=== PATIENT | male | born 1945 | race Caucasian/White ===

== ENCOUNTER → 2020-11-15 | Outpatient (CLI) | payer MEDICARE, BC ==
[2016-09-13 17:40] VITALS: BP 134/84
[~2020-11-15] MED LIST: HYDR-1179 PO
--- NOTE | 2020-11-15 13:46 | RAD ---
CT of the chest without contrast: Clinical History: Reason: FALL, LEFT LATERAL RIB PAIN / Spl. Instructions: / History: . Axial helical images of the chest were obtained without contrast. There is a calcified granuloma in the left upper lobe. There is linear opacities in the lung bases le ft more than right. There is no mediastinal or hilar lymphadenopathy. There is a minimally displaced fracture distal left fourth rib and a nondisplaced fractures through t he distal left fifth and sixth ribs. Impression: Mild rib fractures on the left. End impression PQRS Compliance Statement: One or more of the following individualized dose reduction techniques were utilized for this examinat ion: 1. Automated exposure control 2. Adjustment of the mA and/or kV according to patient size 3. Use of iterative reconstruction technique Electronically signed by: Gregory Reyes III, MD (11/15/2020 1:43 PM) [facility]
== END ==
LOC: CT 12:53
PROVIDERS: ATTEND Nurse Practitioner Adult Health
DX: S22.42XA Multiple fractures of ribs, left side, initial encounter for closed fracture (principal); S22.32XA Fracture of one rib, left side, initial encounter for closed fracture; R91.8 Other nonspecific abnormal finding of lung field; X58.XXXA Exposure to other specified factors, initial encounter; Y92.89 Other specified places as the place of occurrence of the external cause; Y93.89 Activity, other specified; Y99.8 Other external cause status
CPT/HCPCS: 71250

== ENCOUNTER → 2021-02-20 | Outpatient (CLI) | payer MEDICARE, BC ==
[2016-09-13 17:40] VITALS: BP 134/84
--- NOTE | 2021-02-20 09:11 | RAD ---
EXAM: Chest, abdomen and pelvis CT without intravenous contrast. HISTORY: Shortness of breath. Fever. TECHNIQUE: Computed tomographic images of the chest, abdomen and pelvis were obtained without contras t. Multiplanar reformatting was performed. *One or more of the following individualized dose reduction techniques were utilized for this examina tion: 1. Automated exposure control. 2. Adjustment of the mA and/or kV according to patient size. 3. Use of iterative reconstruction technique. COMPARISON: 11/15/2020 and 02/06/2009. FINDINGS: Chest: The heart is normal in size. The aorta is normal in caliber. There is calcified athe rosclerotic plaque involving the coronary arteries. No pathologically enlarged lymph node is seen. Th ere are calcified left suprahilar and upper lobe granulomas. There is no pneumothorax or pleural effu mel. There is right greater than left posterior apical pleural parenchymal scarring. There are few b enign pleural based nodular opacities within the posterior lower lobes due to atelectasis or scarring . There is basilar and posterior dependent atelectasis. There is lingular and medial right middle lob e pleural parenchymal scarring. There are degenerative changes involving the thoracic spine. There is no acute or suspicious osseous finding. Abdomen and pelvis: No hepatic lesion is seen. The gallbladder, pancreas, spleen and adrenal glands a re unremarkable. There are postoperative changes at the gastroesophageal junction. There is a [address] one within the proximal right ureter or ureteropelvic junction, without significant hydronephrosis. N o additional renal or ureteral stone is seen. There is moderate colonic stool. There is distal colonic diverticulosis. There is no diverticulitis. There is a superior umbilical hernia containing fat. The hernia defect measures approximately 2.6 cm and the hernia sac measures approximately 7.3 cm. There is stranding within the herniated fat and adj acent ventral peritoneal fat suggesting a component of fat incarceration. There is also a small left periumbilical hernia with a defect measuring 1.2 cm and the hernia sac measuring 2.8 cm. There is a t hird tiny fat-containing supraumbilical hernia to left of midline. The bladder is unremarkable. The prostate is prominent in size. The aorta is normal in caliber. There are prominent left greater than right inguinal lymph nodes. For reference purposes, the largest left inguinal lymph node measures 2.6 cm in long axis. There are degenerative changes involving the spine and both hips. There is no acute or suspicious osseous finding. IMPRESSION: 1. Colonic diverticulosis, without evidence of diverticulitis. 2. Fat-containing left periumbilical and supraumbilical hernias, the latter of which is associated wi th fatty stranding suggesting a component of fat incarceration. Correlate with physical exam findings . 3. Prominent left greater than right inguinal lymph nodes, increased compared to the prior study. The se are nonspecific and may be reactive in etiology. No additional pathologically enlarged lymph node is seen. 4. Bilateral posterior apical pleural proximal scarring. There is no acute thoracic finding. 5. 7 mm stone within the proximal right ureter or ureteropelvic junction, without associated signific ant obstruction. Electronically signed by: Gail Reese MD (02/20/2021 9:09 AM) [id number]
== END ==
LOC: CT 08:14
PROVIDERS: ATTEND Family Medicine
DX: K57.30 Diverticulosis of large intestine without perforation or abscess without bleeding (principal); K42.9 Umbilical hernia without obstruction or gangrene; J94.8 Other specified pleural conditions; I70.0 Atherosclerosis of aorta; J84.10 Pulmonary fibrosis, unspecified; J98.11 Atelectasis; M47.814 Spondylosis without myelopathy or radiculopathy, thoracic region; N20.1 Calculus of ureter; M16.0 Bilateral primary osteoarthritis of hip; R50.9 Fever, unspecified; R79.9 Abnormal finding of blood chemistry, unspecified
CPT/HCPCS: 71250; 74176